=== PATIENT | female | born 1980 | race Caucasian/White ===

== ENCOUNTER 2019-04-16 08:09 | Outpatient (CLI) | payer OTHER ==
--- NOTE | 2019-04-16 12:23 | Diagnostic Imaging Report ---
FLORENTINO NOBLE [facility] [id number] [facility]ly [facility] [address] [place] [address]. [id number] Report Submission Date: April 16, 2019 9:16:43 AM CDT Patient Study Name: GEORGE GALLARDO Date: April 16, 2019 8:40:24 AM CDT Modality Type: DX Gender: F Description: T SPINE 3 VIEWS : 84 Institution: [facility] Physician: FLORENTINO NOBLE Examination: Plain film thoracic spine History: MID BACK PAIN X4-5 MONTHS, NO KNOWN INJURY Findings: 4 views of the thoracic spine demonstrate normal height. No anterior compression. No soft tissue abnormalities. Impression: No acute osseous process. Electronically signed on April 16, 2019 9:16:43 AM CDT by: Danilo ARREDONDO
== END 2019-04-16 08:10 ==
LOC: RAD 08:09
PROVIDERS: ATTEND Family Medicine
DX: M54.6 Pain in thoracic spine (principal)
CPT/HCPCS: 72072